=== PATIENT | female | born 2005 | race African-American/Black ===

== ENCOUNTER 2025-04-15 10:56 | Emergency (ER) | payer MEDICAID ==
[~2025-04-15] VITALS: Ht 162.6 cm; Wt 54.0 kg
[~2025-04-15 10:56] MED LIST: DOXY-244 MT; METR-167 MT
[2025-04-15 10:59] VITALS: O2SAT 100
[2025-04-15] MEDS: LEVETIRACETAM 1000MG PREMIX 100 ML IV ONE (11:22)
[2025-04-15 11:35] LABS: BASOPHILS % 0.5 % (0.0-2.0); EOSINOPHILS % 8.4 % (0.0-5.0); HEMATOCRIT. 37.1 % (36.0-48.0); HEMOGLOBIN. 12.6 g/dL (12.0-16.0); LYMPHOCYTES % 34.1 % (20.0-50.0); MEAN PLATELET VOLUME 7.9 fl (7.4-10.4); MONOCYTES % 11.8 % (2.0-8.0); NEUTROPHILS % 45.2 % (40.0-76.0); PLATELET 233 x1000/uL (130-400); RED BLOOD CELL COUNT 4.17 mill/uL (4.2-5.4); RED CELL DISTRIBUTION WIDTH 13.4 % (11.6-14.6)
[2025-04-15 11:52] LABS: CREATININE 0.8 mg/dL (0.6-1.0); UREA NITROGEN BLOOD 11 mg/dL (9-23)
[2025-04-15 11:53] LABS: ETHANOL BLOOD < 10 mg/dL (<10)
[2025-04-15 12:16] LABS: CLARITY URINE CLEAR (CLEAR); COLOR URINE YELLOW (YELLOW); GLUCOSE URINE NEGATIVE (NEGATIVE); KETONES URINE NEGATIVE (NEGATIVE); LEUKOCYTE ESTERASE URINE NEGATIVE (NEGATIVE); NITRITE URINE NEGATIVE (NEGATIVE); OCCULT BLOOD URINE NEGATIVE (NEGATIVE); PH URINE 5.5 (4.5-8.0); PROTEIN URINE NEGATIVE (NEGATIVE); SPECIFIC GRAVITY URINE 1.013 (1.005-1.030); UROBILINOGEN URINE 0.2 E.U./dL (0.2-1.0)
[2025-04-15] MEDS ORDERED: KEPP500 PO (12:21)
[2025-04-15 12:33] VITALS: BP 101/57; PULSE 59; RESP 16; TEMP 36.9; O2SAT 98
[2025-04-15 12:51] LABS: *AMPHETAMINES SCREEN URINE NEGATIVE (NEGATIVE)
[2025-04-15 12:52] LABS: *BARBITURATES SCREEN URINE NEGATIVE (NEGATIVE); *BENZODIAZEPINES SCREEN URINE NEGATIVE (NEGATIVE); *COCAINE SCREEN URINE NEGATIVE (NEGATIVE); CANNABINOID URINE SCREEN PRESUMPTIVE POSITIVE (NEGATIVE); ECSTASY MDMA SCREEN URINE NEGATIVE (NEGATIVE); METHADONE URINE SCREEN NEGATIVE (NEGATIVE); OPIATES URINE SCREEN NEGATIVE (NEGATIVE); PHENCYCLIDINE URINE SCREEN NEGATIVE (NEGATIVE)
== END 2025-04-15 13:04 | disposition home or self-care (01) ==
LOC: ER 10:56
DX: G40.909 Epilepsy, unspecified, not intractable, without status epilepticus (principal); Z79.899 Other long term (current) drug therapy
CPT/HCPCS: 80305; 80048; 81003; 80320; 85025; 36415; 93005; 96365; 99284; J1953; G0480